=== PATIENT | female | born 1995 | race Two or more races ===

== ENCOUNTER 2017-01-19 03:22 | Emergency (ER) | payer SELFPAY ==
[~2017-01-19] VITALS: Ht 165.1 cm; Wt 49.9 kg
--- NOTE | 2017-01-19 03:40 | NUR ---
TO BED 21 A 21 YO FEMALE BIB SELF AND PT STATES SHE HAS A TAMPON IN AND CANT GET IT OUT X 3 HOURS. VSS. GOWNED. AWAITING FOR ER MD SHARP.
--- NOTE | 2017-01-19 03:50 | NUR ---
Dr peñaloza at bedside for eval.
--- NOTE | 2017-01-19 04:18 | NUR ---
No tampon noted per Dr Harden. Patient discharged to home in stable condition. Written and verbal after care instructions given. Patient verbalizes understanding of instruction. Patient is ambulatory with a steady gait. No further complaints.
[2017-01-19 04:20] VITALS: BP 123/90
== END 2017-01-19 04:20 | disposition home or self-care (01) ==
LOC: ER 03:24
DX: T19.2XXA Foreign body in vulva and vagina, initial encounter (principal); X58.XXXA Exposure to other specified factors, initial encounter; Y92.89 Other specified places as the place of occurrence of the external cause; Y93.89 Activity, other specified; Y99.8 Other external cause status
CPT/HCPCS: 99283; A4606; Z7610